=== PATIENT | female | born 1985 | race Caucasian/White ===

== ENCOUNTER 2016-08-19 13:19 | Emergency (ER) | payer OTHER ==
--- NOTE | ~2016-08-19 | US134 ---
[facility] A Service of [facility] RADIOLOGY TEXT RESULTS PATIENT: DON POLLOCK LOCATION: SED : 89 UNIT #: [id number] AGE: [address]: Martell Urrutia MD SEX: F ORDER DR: [id number] [place] [id number] E MR#: [id number] Acc #: [id number] NAME: DON POLLOCK : 1985 SEX: F STUDY DATE/TIME: 08/19/2016 15:22 UNIT: SED ROOM: STUDY DESCRIPTION: Transvaginal Attending Physician: Martell Urrutia M.D. Ordering Physician: Martell Urrutia M.D. Primary Care Physician: Primary Care Physician No MEDICAL IMAGING REPORT This report is preliminary unless electronic signature is present. EXAM Pelvic ultrasound INDICATIONS Lower abdominal pain and pelvic pain today. patient with beta HCG level 177,000. PROCEDURE Silvestre-scale and Doppler imaging of the pelvis via transvaginal approach. COMPARISON None FINDINGS Uterus anteverted measures 10.2 x 7.3 x 7.9 cm. Single intrauterine . Watchtower-rump length of 2.1 cm consistent with 8 weeks and 5 days. Gestational sac measures 5.2 x 3.0 x 4.9 cm. No identified complication. Left ovary measures 2.4 x 2.5 X 3.0 cm. Right ovary measures 1.6 X 2.4 X 3.0 cm. No adnexal mass or pelvic fluid. heart rate detected at 175 beats per minute. IMPRESSION 1. No acute findings. 2. Single intrauterine with estimated gestational age of 8 weeks and 5 days. No complication seen. Dictated by... Isael Quinonez M.D. THIS IS AN ELECTRONICALLY VERIFIED REPORT Isael Quinonez M.D. at 08/20/2016 1:56 PM [facility] A Service of [facility] RADIOLOGY TEXT RESULTS PATIENT: DON POLLOCK LOCATION: SED : 87 UNIT #: [id number] AGE: [address]: Martell Urrutia MD SEX: F ORDER DR: ROX/mely TD: 08/19/2016 17:42 JOB #: [id number] MEDICAL IMAGING REPORT Page 1 of 1
[2016-08-19] MEDS ORDERED: NO MEDICATIONS (13:27)
[2016-08-19 14:31] LABS: URINE SOURCE CLEAN CATCH
[2016-08-19 14:33] LABS: URINE APPEARANCE CLEAR; URINE BILIRUBIN NEG (NEG); URINE BLOOD NEG (NEG); URINE COLOR YELLOW; URINE GLUCOSE NEG (NORM); URINE KETONE NEG (NEG); URINE LEUKOCYTE ESTERASE 1+ (NEG); URINE NITRATE POS (NEG); URINE PROTEIN TRACE (NEG)
[2016-08-19 14:36] LABS: MICRO INDICATED? YES
[2016-08-19 14:50] LABS: URINE BACTERIA 1+ (NEG); URINE CRYSTALS CALCIUM OXALATE /[HPF]; URINE RBC 0-2 /[HPF] (0-2); URINE SQUAMOUS EPITHELIAL CELL OCCAS /[HPF]; URINE WBC 25-50 /[HPF] (0-5)
== END 2016-08-19 17:06 | disposition home or self-care (01) ==
LOC: SED 13:19
PROVIDERS: Emergency Medicine
DX: O20.0 Threatened abortion (principal); F17.210 Nicotine dependence, cigarettes, uncomplicated
CPT/HCPCS: 36415; 76830; 81003; 84702; 99284

== ENCOUNTER 2016-11-08 13:17 | Emergency (ER) | payer OTHER ==
[~2016-11-08 13:17] MED LIST: NO MEDICATIONS
[2016-11-08] MEDS ORDERED: PRENATAL VITAMIN (13:20)
[2016-11-08] MEDS ORDERED: KEFLEX PO (13:21)
== END 2016-11-08 14:42 | disposition home or self-care (01) ==
LOC: SED 13:17
DX: H61.22 Impacted cerumen, left ear (principal); F17.210 Nicotine dependence, cigarettes, uncomplicated; Z91.040 Latex allergy status
CPT/HCPCS: 69209; 99282